=== PATIENT | male | born 1980 | race Caucasian/White ===

== ENCOUNTER 2020-03-22 12:59 | Emergency (ER) | payer OTHER, SELFPAY ==
--- NOTE | 2020-03-22 13:22 | ED.URI ---
HPI - URI/Sore Throat General Chief Complaint: Upper Respiratory Infection Stated Complaint: covid test Source: patient Mode of arrival: ambulatory Limitations: no limitations History of Present Illness HPI Narrative: Patient is a 39-year-old male who presents reporting that his tested positive for COVID-19 on 03/20/2020. Patient is asymptomatic and requesting testing at this time. MD elicited complaint: other (Exposure to Covid) Related Data Home Medications Medication Instructions Recorded Confirmed No Home Medications 03/22/20 03/22/20 Allergies Allergy/AdvReac Type Severity Reaction Status Date / Time Penicillins Allergy Hives Verified 03/22/20 13:20 Review of Systems Review of Systems: Narrative: CONSTITUTIONAL: Denies fever, chills, or sweats. EYES: Denies visual changes, redness, or discharge. ENT: Denies rhinorrhea, congestion, sore throat, or otalgia. CARDIOVASCULAR: Denies chest pain, palpitations, or edema. RESPIRATORY: Denies cough or dyspnea. GASTROINTESTINAL: Denies abdominal pain, nausea, vomiting, or diarrhea. GENITOURINARY: Denies dysuria or hematuria. SKIN: Denies rash or itching. MUSCULOSKELETAL: Denies back pain, joint pain, or myalgia. NEUROLOGIC: Denies headache, numbness, dizziness, or weakness. PSYCHIATRIC: Denies anxiety or depression. [facility] Past Medical History Medical History No significant past medical history Surgical History Surgical History (Updated 03/22/20 @ 13:24 by GURJIT Childs) No significant past surgical history Family History Family History (Updated 03/22/20 @ 13:25 by GURJIT Childs) Other No significant family history Social History Social History (Updated 03/22/20 @ 13:25 by GURJIT Childs) Smoking status: Never smoker Alcohol intake: current Alcohol use details: Occasional Substance use: never Occupation/Education: occupation Gender identity (if verbalized by the patient): Male Comments At the time of signature, I have reviewed and agree with nursing past medical, surgical, social, and family history unless otherwise noted. Please see nursing chart for further information. There is no relevant family history pertinent to the presenting complaint. Exam Narrative: Exam Narrative: GENERAL: Well-appearing, well-nourished, and in no acute distress. HEAD: Normocephalic, atraumatic. EYES:No redness or drainage. ENT: Mucous membranes pink and moist. Nares clear. No rhinorrhea. Throat normal with mild erythema. Uvula midline. NECK: AROM. Supple. No lymphadenopathy. CHEST: No respiratory distress. HEART: Regular rate and rhythm. EXTREMITIES: Normal range of motion. SKIN: Warm, dry, no rash. NEURO: No focal deficits. Alert and oriented x3. Gait steady. PSYCH: Normal affect. No signs of depression or anxiety. Course Vital Signs Vital signs: Vital Signs Temperature 37.3 C 03/22/20 13:27 Pulse Rate 89 03/22/20 13:27 Respiratory Rate 20 03/22/20 13:27 Blood Pressure 128/86 03/22/20 13:27 Pulse Oximetry 100 03/22/20 13:27 Temperature 37.3 C 03/22/20 13:27 Pulse Rate 89 03/22/20 13:27 Respiratory Rate 20 03/22/20 13:27 Blood Pressure 128/86 03/22/20 13:27 Pulse Oximetry 100 03/22/20 13:27 MDM - URI/Sore Throat MDM Narrative Medical decision making narrative: Covid PCR swab performed in urgent care. Patient is aware of the need for quarantine. Patient is aware if he develops chest pain or shortness of breath to go to the emergency department immediately for further evaluation. Patient is stable for discharge home with outpatient follow-up as needed Differential Diagnosis Differential diagnosis: Likely upper respiratory infection, viral infection and other (Covid) Lab Data Labs: Lab Results 03/22/20 Range/Units 13:30 SARS-CoV-2 RNA (RT-PCR) Pending Critical Care Time Critical Care Time
[2020-03-22 13:27] VITALS: BP 128/86; PULSE 89; RESP 20; TEMP 37.3; O2SAT 100
[2020-03-23 16:31] LABS: SARS-CoV-2 RNA PCR Negative
== END 2020-03-22 13:35 | disposition home or self-care (01) ==
PROVIDERS: Emergency Provider Nurse Practitioner
DX: Z20.822 Contact with and (suspected) exposure to COVID-19 (principal)
CPT/HCPCS: 99203; C9803; G0463; U0003; U0005